=== PATIENT | female | born 1995 | race Hispanic/Latino ===

== ENCOUNTER 2019-04-24 10:40 | Day surgery (SDC) | payer OTHER ==
[~2019-04-24] VITALS: Ht 165.1 cm; Wt 67.3 kg
[~2019-04-24 10:40] MED LIST: LR 1,000 ML IV ONE; OCEL3TAB PO; PROAAER10 INH
[2019-04-24] MEDS ORDERED: ONDANSETRON 4MG/2ML VIAL (J2405) As Ordered ONE (11:06)
[2019-04-24] MEDS ORDERED: propofoL 200 MG/20 ML VIAL As Ordered ONE (11:06)
[2019-04-24] MEDS ORDERED: KETOROLAC 60 MG/2 ML VIAL (J1885) As Ordered ONE (11:06)
[2019-04-24] MEDS ORDERED: dexameTHASONE 4 MG/ML 1ML VIAL (J1100) As Ordered ONE (11:06)
[2019-04-24] MEDS ORDERED: LIDOCAINE 2% INJ 100 MG/5 ML SDV (FOR ANES.) As Ordered ONE (11:06)
[2019-04-24 11:48] LABS: HEMATOCRIT 39.5 % (36.0-47.0); HEMOGLOBIN 13.4 g/dl (12.0-15.5)
[2019-04-24] MEDS ORDERED: IODINE STRONG SOLN 15 ML BTL As Ordered ONE (12:10)
[2019-04-24] MEDS ORDERED: MIDAZOLAM INJ 2 MG/2 ML VIAL (J2250) As Ordered ONE (12:16)
[2019-04-24] MEDS ORDERED: fentaNYL 100 MCG/2 ML INJECTION (J3010) As Ordered ONE (12:16)
[2019-04-24] MEDS ORDERED: LIDOCAINE 1% MDV 20ML VIAL As Ordered ONE (12:45)
[2019-04-24] MEDS ORDERED: ONDANSETRON 4MG/2ML VIAL (J2405) IV PRN (14:00)
[2019-04-24] MEDS ORDERED: LR 1,000 ML IV SCH (14:00)
[2019-04-24] MEDS ORDERED: fentaNYL 100 MCG/2 ML INJECTION (J3010) IV PRN (14:00)
[2019-04-24 14:30] VITALS: BP 113/63
--- NOTE | 2019-04-25 06:50 | RO ---
DATE OF OPERATION: 04/24/2019 STAFF SURGEON: Joy Terrazas MD CLINICAL SERVICE: Gynecology. INDICATIONS FOR OPERATION: Karime is a 23-year-old 0 who was diagnosed with high grade squamous intraepithelial lesion (HGSIL) based on recent colposcopy. We discussed continuing surveillance close interval versus treatment with a Loop electrosurgical excision procedure (LEEP) and the patient desired to proceed with a LEEP procedure. MATERIAL FORWARDED TO THE LAB FOR EXAMINATION: Cervical LEEP specimen, stitch at 12 o'clock. PREOPERATIVE DIAGNOSIS: HGSIL. POSTOPERATIVE DIAGNOSIS: HGSIL. INFECTION CLASSIFICATION: 2 ESTIMATED BLOOD LOSS: 10 mL. URINE OUTPUT: Not measured. IV FLUIDS: 300 mL of Lactated Ringer's. OPERATION PERFORMED: LEEP. DESCRIPTION OF OPERATION: After obtaining informed consent the patient was taken to the operating room where she underwent general anesthesia. She was placed in low lithotomy position and the perineum and vagina were prepped and draped in a sterile fashion. The coated speculum was inserted into the vagina and the cervix was coated with Lugol's. There was a central nonstaining portion of the cervix noted. A coated tenaculum was placed on the anterior lip of the cervix and 4 mL of 1% lidocaine were injected for an intracervical block. The LEEP was completed in one pass. Electrocautery was then applied to the LEEP bed with adequate hemostasis. Monsel solution was applied afterwards with adequate hemostasis noted. The patient tolerated the procedure well. Specimen was sent to pathology after placing a stitch at 12 o'clock. The tenaculum was removed with hemostasis noted at the tenaculum site. [place] speculum was removed. The patient was transferred to the recovery room in good condition. All counts were correct times two. Vaginal sweep had revealed nothing retained.
== END 2019-04-24 14:35 | disposition home or self-care (01) ==
LOC: M SDC 10:40
PROVIDERS: ATTEND Obstetrics & Gynecology
DX: N87.1 Moderate cervical dysplasia (principal); F41.9 Anxiety disorder, unspecified; F32.9 Major depressive disorder, single episode, unspecified; G43.909 Migraine, unspecified, not intractable, without status migrainosus; J45.909 Unspecified asthma, uncomplicated; Z79.899 Other long term (current) drug therapy
CPT/HCPCS: 36415; 57522; 81025; 84702; 85014; 85018; 86850; 86900; 86901; 88307; J1100; J1885; J2250; J2405; J3010